=== PATIENT | male | born 2000 | race Caucasian/White ===

== ENCOUNTER 2018-12-19 16:17 | Inpatient (IN) ==
[2018-12-19] MEDS ORDERED: IBUPROFEN 800 MG TAB PO STA (16:24)
[2018-12-19] MEDS ORDERED: AMOXICILLIN 500 MG CAP PO STA (16:24)
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
[2018-12-19] MEDS ORDERED: AMOXICILLIN 250 MG CAP PO ONE (16:38)
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
[2018-12-19] MEDS ORDERED: OXYCODONE HCL IR 5 MG TAB (IMMEDIATE RELEASE) PO STA (18:02)
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
[2018-12-19] MEDS ORDERED: ONDANSETRON INJ 2 MG/ML 2 ML VIAL IV PRN (19:18)
[2018-12-19] MEDS ORDERED: MoRPHine SULFATE 2 MG/ML CARP IV STA (19:33)
[2018-12-19] MEDS ORDERED: KETOROLAC 30 MG/ML VIAL IV PRN (19:33)
[2018-12-19] MEDS: LACTATED RINGER'S 1,000 ML IV SCH (21:48)
[2018-12-19] MEDS ORDERED: INFLUENZA ADMINISTRATION CHARGE ONE (22:00)
[2018-12-19] MEDS ORDERED: INFLUENZA VIRUS QUAD VACCINE 0.5 ML SYR IM ONE (22:00)
[2018-12-20] MEDS: DEXAMETHASONE SOD PHOSPHATE 4 MG in SYRINGE 0 ML IV SCH ×5 (00:28→23:57)
[2018-12-20] MEDS: LACTATED RINGER'S 1,000 ML IV SCH (05:38)
[2018-12-20] MEDS ORDERED: CEFAZOLIN 500 MG in SYRINGE 0 ML IV SCH (06:00)
[2018-12-20] MEDS ORDERED: ePHEDrine sulfate 50 MG/ML AMP ONE (06:47)
[2018-12-20] MEDS ORDERED: NEOSTIGMINE METHYLSULFATE 5 MG/5 ML SYR ONE (06:47)
[2018-12-20] MEDS ORDERED: DEXAMETHASONE SOD INJ 4 MG/ML VIAL ONE ×2 (06:47→08:31)
[2018-12-20] MEDS ORDERED: LIDOCAINE HCL 2% 2 ML VIAL/AMP(20MG/ML) INFIL ONE (06:47)
[2018-12-20] MEDS ORDERED: PHENYLEPHRINE HCL 10 MG/ML VIAL ONE (06:47)
[2018-12-20] MEDS ORDERED: PROPOFOL IV EMULSION 10 MG/ML 20 ML VIAL IV ONE ×2 (06:47→08:30)
[2018-12-20] MEDS ORDERED: GLYCOPYRROLATE 0.2 MG/ML VIAL ONE (06:47)
[2018-12-20] MEDS ORDERED: ONDANSETRON INJ 2 MG/ML 2 ML VIAL ONE ×2 (06:47→09:18)
[2018-12-20] MEDS ORDERED: SUCCINYLCHOLINE CHLORIDE 20 MG/ML 10 ML VIAL ONE (06:47)
[2018-12-20] MEDS ORDERED: fentaNYL citrate 100 MCG/2 ML VIAL ONE (06:48)
[2018-12-20] MEDS ORDERED: MIDAZOLAM HCL 1 MG/ML 2ML VIAL ONE (06:48)
[2018-12-20] MEDS ORDERED: LIDOCAINE 2% JELLY 5 ML TUBE ONE (07:15)
--- NOTE | 2018-12-20 07:21 | Anesthesiology Consultation ---
Date of Service December 20, 2018 Assessment & Plan (1) Encounter for pre-operative examination: Chart Review Chart Review: Acceptable Risk for Surgery and Patient NOT seen in Pre Admission Testing Consults Requested none ASA ASA1 Proposed Anesthesia Anesthesia Type: General Risk / Benefits Reviewed With: PT / POA / Parent / Guardian, Accepts Plan and Informed Consent Obtained History Surgery Operation Date: 12/20/18 07:05 Proposed Procedures p Open Reduction Mandible - Jordan Kaye, DMD Height/Weight Height: 5 ft 11 in Weight: 79.6 kg Allergies Allergy/AdvReac Type Severity Reaction Status Date / Time No Known Allergies Allergy Unverified 12/19/18 16:42 Medications Home Medications Medication Instructions Recorded Confirmed Last Taken dexlansoprazole [Dexilant] 30 mg PO DAILY 12/19/18 12/19/18 Unknown Active Medications Generic Name Dose Route Start Last Admin Trade Name Freq PRN Reason Stop Dose Admin Dexamethasone Sodium Phosphate 1 mls @ 1 mls/min 12/20/18 00:00 12/20/18 06:31 4 mg/ Syringe IV 01/19/19 00:00 1 mls/min Q6 REECE Administration Lactated Ringer's 1,000 mls @ 125 mls/hr 12/19/18 19:30 12/20/18 05:38 Lr IV 01/18/19 19:29 125 mls/hr .Q8H REECE Administration Ketorolac Tromethamine 30 mg 12/19/18 19:33 12/19/18 22:42 Toradol IV 12/24/18 19:32 30 mg Q6H PRN Administration Pain Ondansetron HCl 4 mg 12/19/18 19:18 12/19/18 19:45 Zofran IV 01/18/19 19:17 4 mg Q6H PRN Administration Nausea NPO Date Last Intake of Fluids: 12/19/18 Time Last Intake of Fluids: 23:59 Date Last Intake of Solids: 12/19/18 Time Last Intake of Solids: 17:00 Past Medical History Medical History GERD (gastroesophageal reflux disease) Exercise / Class Metabolic Activity II 4-5 Yardwork/Stairs/Walk up hill Negative for chest pain or shortness of breath. Past Surgical History Surgical History History of endoscopy Past Anesthesia History No Hx of Anesthesia Complications and No Family Hx of Anesthesia Complications History of PONV No Hx of PONV and No Hx of Motion Sickness Social History Smoking Status: Light tobacco smoker tobacco type: cigarettes and e-cigarettes Smoking cigarettes per day: occassional Do You Dip or Chew Tobacco: No Hx Alcohol Use: Yes Alcohol type: beer and hard liquor alcohol intake frequency: a few times a week Hx Substance Use: Yes substance use type: marijuana Last Used Substance: Days (ago) (Yesterday morning) Review of Systems Patient denies active symptoms of GERD. Physical Exam Vital Signs Last Vital Signs Temp 37.4 C 12/19/18 23:04 Pulse 92 H 12/19/18 23:04 Resp 16 12/19/18 23:04 BP 119/72 12/19/18 23:04 Pulse Ox 95 12/19/18 23:04 Constitutional not obese ENMT Mouth: + TMJ abnormality (Very small mouth opening due to jaw fracture) and + small oral opening Thyromental Distance: > or= 3.5 Finger Breadths Mallampati Class: II Neck normal visual inspection; neck extension not limited Respiratory normal respiratory effort Auscultation: lungs clear to auscultation bilaterally Cardiovascular Rate/Rhythm: regular rate and regular rhythm Heart Sounds: no murmur Neurologic moves all extremities Psychiatric Orientation: alert and oriented x 3
--- NOTE | 2018-12-20 07:25 | History & Physical Bridge Note ---
Date of Service December 20, 2018 History & Physical Bridge Note I have examined the patient, reviewed the History & Physical and in the interval since the performance of the History & Physical I have noted the following changes of clinical significance: no changes noted We will plan placement of arch bars and open reduction (extraoral) for anterior fracture.
[2018-12-20] MEDS ORDERED: CEFAZOLIN 2000MG 2,000 MG/15 ML SYR IV ONE (07:34)
[2018-12-20] MEDS ORDERED: HEPARIN SOD (PORCINE) 5,000 UNITS/ML VIAL ONE (07:41)
[2018-12-20] MEDS ORDERED: BUPIVACAINE/EPINEPHRINE 0.5% 1:200,000 1.8 ML CARP ONE (07:41)
[2018-12-20] MEDS ORDERED: SODIUM CHLORIDE 0.9% INJ 10 ML VIAL ONE (07:50)
[2018-12-20] MEDS ORDERED: KETAMINE HCL INJ 50 MG/ML 10 ML VIAL ONE (07:50)
[2018-12-20] MEDS ORDERED: CHLORHEXIDINE GLUCONATE 0.12% 480 ML ONE (08:09)
[2018-12-20] MEDS ORDERED: ROCURONIUM BROMIDE 10 MG/ML 5 ML VIAL ONE (08:30)
[2018-12-20] MEDS ORDERED: CEFAZOLIN 250 MG/ML 1 GM VIAL ONE (08:30)
[2018-12-20] MEDS ORDERED: PROMETHAZINE HCL 12.5 MG in SODIUM CHLORIDE 0.9% 50 ML IV PRN (08:32)
[2018-12-20] MEDS ORDERED: ePHEDrine sulfate 50 MG/ML AMP IV PRN (08:32)
[2018-12-20] MEDS ORDERED: fentaNYL citrate 100 MCG/2 ML VIAL IV PRN (08:32)
[2018-12-20] MEDS ORDERED: ONDANSETRON INJ 2 MG/ML 2 ML VIAL IV PRN ×2 (08:32→10:26)
[2018-12-20] MEDS ORDERED: ATROPINE SULFATE 0.1 MG/ML 10ML SYR IV PRN (08:32)
[2018-12-20] MEDS ORDERED: HYDROmorphone INJ 2 MG/ML SYR/VIAL IV PRN (08:32)
[2018-12-20] MEDS ORDERED: METOCLOPRAMIDE HCL INJ 5 MG/ML 2 ML VIAL ONE (09:18)
[2018-12-20] MEDS ORDERED: TRIAMCINOLONE ACET 0.1% OINT 15 GM TUBE ONE (09:18)
[2018-12-20] MEDS ORDERED: LIDOCAINE/EPINE 2% 1:100,000 20ML ONE (09:22)
--- NOTE | 2018-12-20 10:23 | Post Operative Brief Note ---
PG Immediate Post Op with CF Date of Surgery December 20, 2018 Pre & Post Diagnosis Operation Date: 12/20/18 07:05 Pre-Op Diagnosis: JAW FRACTURE Post-Op Diagnosis: JAW FRACTURE I identified the patient and participated in the time-out.: Yes Procedure Operation Date: 12/20/18 07:05 Actual Procedures p Open Reduction Mandible Plate fixation anterior lower jaw Placement of arch bars Jordan Kaye DMD Surgeon Jordan Kaye DMD Carton Wrapper none Estimated Blood Loss 10 Findings Consistent with Post-Op Diagnosis Specimens Specimen Description: None per surgeon
[2018-12-20] MEDS ORDERED: ACETAMINOPHEN/HYDROCODONE ELIX 15 ML/CUP UDP PO PRN (10:26)
[2018-12-20] MEDS ORDERED: LORazepam 1 MG/2 ML VIAL IV PRN (10:26)
[2018-12-20] MEDS ORDERED: MoRPHine SULFATE 2 MG/ML CARP IV PRN (10:26)
[2018-12-20] MEDS ORDERED: DEXAMETHASONE SOD PHOSPHATE 6 MG in SYRINGE 0 ML IV SCH (10:30)
--- NOTE | 2018-12-20 11:30 | XRay Report ---
XR mandible <4V CLINICAL HISTORY: 18 years-old Male presenting with Status Post-Op Surgery AP Mandibular and Jaw View . TECHNIQUE: 3 views of the mandible were obtained. COMPARISON: Comparison made to CT face from 12/19/2018. FINDINGS: Interval placement of wire occlusion of the mouth as well as plate and screw fixation along the left anterior mandibular body. Previously noted fracture through the anterior aspect of the left mandibula r body is noted and is nondisplaced. Previously noted fracture obliquely oriented fracture of the rig ht mandibular ramus is also noted and nondisplaced. Paranasal sinuses and mastoid air cells coursing clear. Cervical spine intact. IMPRESSION: Fixation hardware now in place for the left anterior mandibular body fracture and obliquely oriented right mandibular ramus fracture. No malalignment. Electronically signed by: Giancarlo Du M.D. 12/20/2018 11:29 AM
--- NOTE | 2018-12-20 11:45 | Anesthesiology Progress Note ---
Date of Service December 20, 2018 Anesthesia Post Procedure Vital Signs Vital Signs: Temp Pulse Pulse Pulse Resp BP BP 12/20/18 11:35 36.9 C 74 19 132/89 12/20/18 11:25 76 19 142/98 H 12/20/18 11:15 95 H 19 127/86 12/20/18 11:05 96 H 19 128/93 12/20/18 10:55 82 23 133/76 12/20/18 10:45 36.6 C 87 12 133/75 12/19/18 23:04 37.4 C 92 H 16 12/19/18 20:26 36.9 C 81 20 12/19/18 19:52 83 20 12/19/18 18:02 95 H 20 12/19/18 16:24 36.7 C 106 H 20 145/91 H BP Pulse Ox 12/20/18 11:35 97 12/20/18 11:25 95 12/20/18 11:15 98 12/20/18 11:05 98 12/20/18 10:55 98 12/20/18 10:45 98 12/19/18 23:04 119/72 95 12/19/18 20:26 129/65 95 12/19/18 19:52 126/73 100 12/19/18 18:02 136/76 98 12/19/18 16:24 99 Pain Intensity Jaw: Pain Intensity: 4 Transfer of Care Handoff Completed per policy Notes Mental Status: alert / awake / arousable and participated in evaluation Patient Amnestic to Procedure: Yes Nausea / Vomiting: adequately controlled Pain: adequately controlled Airway Patency, RR, SpO2: stable & adequate BP & HR: stable & adequate Hydration State: stable & adequate Anesthetic Complications: no major complications apparent and Pt Satisfied with anesthetic care
[2018-12-20] MEDS: KETOROLAC 30 MG/ML VIAL IV SCH ×3 (12:12→23:58)
[2018-12-20] MEDS: D5W AND 1/2NSS + 20MEQ KCL 20 MEQ/1,000 ML BAG IV SCH ×2 (12:43→20:30)
[2018-12-20] MEDS: CEFAZOLIN 1000MG 1,000 MG/7.5 ML SYR IV SCH ×2 (15:24→23:56)
--- NOTE | 2018-12-20 16:12 | Anesthesiology Progress Note ---
Date of Service December 20, 2018 Anesthesia Post Procedure Vital Signs Vital Signs: Temp Pulse Pulse Pulse Resp BP BP 12/20/18 14:58 65 16 118/67 12/20/18 13:24 86 16 125/71 12/20/18 12:19 88 16 148/81 H 12/20/18 11:55 12/20/18 11:35 36.9 C 74 19 132/89 12/20/18 11:25 76 19 142/98 H 12/20/18 11:15 95 H 19 127/86 12/20/18 11:05 96 H 19 128/93 12/20/18 10:55 82 23 133/76 12/20/18 10:45 36.6 C 87 12 133/75 12/19/18 23:04 37.4 C 92 H 16 12/19/18 20:26 36.9 C 81 20 12/19/18 19:52 83 20 12/19/18 18:02 95 H 20 12/19/18 16:24 36.7 C 106 H 20 145/91 H BP Pulse Ox Pulse Ox 12/20/18 14:58 99 12/20/18 13:24 97 12/20/18 12:19 96 12/20/18 11:55 96 12/20/18 11:35 97 12/20/18 11:25 95 12/20/18 11:15 98 12/20/18 11:05 98 12/20/18 10:55 98 12/20/18 10:45 98 12/19/18 23:04 119/72 95 12/19/18 20:26 129/65 95 12/19/18 19:52 126/73 100 12/19/18 18:02 136/76 98 12/19/18 16:24 99 Pain Intensity Jaw: Pain Intensity: 4 Notes Mental Status: alert / awake / arousable and participated in evaluation Patient Amnestic to Procedure: Yes Nausea / Vomiting: adequately controlled Pain: adequately controlled Airway Patency, RR, SpO2: stable & adequate BP & HR: stable & adequate Hydration State: stable & adequate Anesthetic Complications: see Notes below Notes: Called to see patient due to complaints of left eye pain. Patient reports pain and foreign body sensation in the medial corner of his left eye. He denies any vision changes. The eye is normal in appearance, without edema or erythema. No obvious signs of foreign body. Extraocular motion intact. The patients symptoms and presentation are consistent with possible corneal abrasion. I discussed this with the patient. Most corneal abrasions self resolve within the first 24 to 72 hours. Patching is not necessary and may impair healing. The patient was encouraged to rest with eyes closed and the patient can gently apply a cool compress for symptom relief. The patient should avoid rubbing or touching the symptomatic eye. An order was placed for erythromycin ointment QID to assist with eye pain and symptoms. Symptoms should be improved tomorrow. We will follow up then. Olga Potts MD, PhD Anesthesiologist
[2018-12-20] MEDS: ERYTHROMYCIN OP OINT 5 MG/GM 3.5 GM TUBE OP SCH ×2 (17:21→20:32)
[2018-12-20] MEDS: CHLORHEXIDINE GLUCONATE 0.12% 480 ML MT SCH (20:33)
[2018-12-20] MEDS ORDERED: TRIAMCINOLONE ACET 0.1% OINT 15 GM TUBE EXT SCH (21:00)
[2018-12-21] MEDS: D5W AND 1/2NSS + 20MEQ KCL 20 MEQ/1,000 ML BAG IV SCH (05:32)
[2018-12-21] MEDS: DEXAMETHASONE SOD PHOSPHATE 4 MG in SYRINGE 0 ML IV SCH (05:33)
[2018-12-21] MEDS: KETOROLAC 30 MG/ML VIAL IV SCH (05:34)
--- NOTE | 2018-12-21 07:49 | Anesthesiology Progress Note ---
Date of Service December 21, 2018 Anesthesia Post Procedure Vital Signs Vital Signs: Temp Pulse Pulse Resp BP BP Pulse Ox 12/21/18 07:29 36.7 C 60 16 106/58 L 96 12/21/18 05:00 12/21/18 04:05 36.8 C 61 16 102/62 98 12/20/18 23:30 36.7 C 79 18 100/60 97 12/20/18 19:25 51 L 18 101/61 97 12/20/18 14:58 65 16 118/67 99 12/20/18 13:24 86 16 125/71 97 12/20/18 12:19 88 16 148/81 H 96 12/20/18 11:55 12/20/18 11:35 36.9 C 74 19 132/89 97 12/20/18 11:25 76 19 142/98 H 95 12/20/18 11:15 95 H 19 127/86 98 12/20/18 11:05 96 H 19 128/93 98 12/20/18 10:55 82 23 133/76 98 12/20/18 10:45 36.6 C 87 12 133/75 98 Pulse Ox 12/21/18 07:29 12/21/18 05:00 97 12/21/18 04:05 12/20/18 23:30 12/20/18 19:25 12/20/18 14:58 12/20/18 13:24 12/20/18 12:19 12/20/18 11:55 96 12/20/18 11:35 12/20/18 11:25 12/20/18 11:15 12/20/18 11:05 12/20/18 10:55 12/20/18 10:45 Pain Intensity Jaw: Pain Intensity: 4 Notes Mental Status: alert / awake / arousable and participated in evaluation Patient Amnestic to Procedure: Yes Nausea / Vomiting: adequately controlled Pain: adequately controlled Airway Patency, RR, SpO2: stable & adequate BP & HR: stable & adequate Hydration State: stable & adequate Anesthetic Complications: no major complications apparent and Pt Satisfied with anesthetic care Notes: Pt states that this morning his eye feels %100 normal.
[2018-12-21] MEDS: CEFAZOLIN 1000MG 1,000 MG/7.5 ML SYR IV SCH (08:08)
[2018-12-21] MEDS: CHLORHEXIDINE GLUCONATE 0.12% 480 ML MT SCH (08:10)
[2018-12-21] MEDS: ERYTHROMYCIN OP OINT 5 MG/GM 3.5 GM TUBE OP SCH (08:13)
--- NOTE | 2018-12-21 08:19 | Surgery Progress Note ---
Date of Service Iván is doing very well today. The occlusion is stable, Post op X Rays look excellent. VS stable, PO diet is good, No swelling, OH good, no pain. Plan We will plan D/C today I reviewed home care with parents. Wire cutters given to patient for use in emergence while in [facility], instructed Iván where the wire are located. I will see Iván in office on December 25 RX: Lortab and Amox liquid. December 21, 2018 Results & Data Vital Signs (Past 12 Hours) Vital Signs Temp Pulse Resp BP BP Pulse Ox Pulse Ox 12/21/18 07:29 36.7 C 60 16 106/58 L 96 12/21/18 05:00 97 12/21/18 04:05 36.8 C 61 16 102/62 98 12/20/18 23:30 36.7 C 79 18 100/60 97 PG Care Time/CCT Total # of Minutes Spent Total Time Spent with Patient: Total time spent is greater than 50% in coordination of care (as documented) at patient's floor/unit and/or counseling patient:
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
== END 2018-12-21 08:51 | disposition home or self-care (01) | DRG 132 ==
LOC: ED 16:17 → 3N 19:19